=== PATIENT | female | born 1965 | race African-American/Black ===

== ENCOUNTER 2019-10-02 17:49 | Emergency (ER) | payer OTHER ==
[~2019-10-02] VITALS: Ht 167.6 cm; Wt 104.3 kg
[2019-10-02 17:56] VITALS: BP 132/84
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
--- NOTE | 2019-10-02 18:10 | NUR ---
ED Nurse Note: [employer] at bedside with patient.
[2019-10-02] MEDS ORDERED: Omnipaque-300 100ml vial INJ ONE (18:15)
[2019-10-02] MEDS ORDERED: Acetaminophen 500mg (ES) tab ORAL ONE (18:15)
[2019-10-02] MEDS ORDERED: Methocarbamol 750mg tab ORAL ONE (18:15)
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
--- NOTE | 2019-10-02 18:30 | NUR ---
ED Nurse Note: Xray at bedside.
--- NOTE | 2019-10-02 18:42 | NUR ---
ED Nurse Note: Pt taken to CT at this time.
[2019-10-02 18:55] LABS: BASOPHILS % (AUTO) 0.9 % (0.0-2.0); EOSINOPHILS % (AUTO) 0.8 % (0.0-3.0); HEMATOCRIT 38.7 % (37.0-47.0); HEMOGLOBIN 13.1 G/DL (12.0-16.0); LYMPHOCYTES % (AUTO) 19.2 % (20.0-45.0); MEAN CORPUSCULAR VOLUME 88 FL (80-99); MONOCYTES % (AUTO) 5.6 % (1.0-10.0); NEUTROPHILS % (AUTO) 73.5 % (45.0-75.0); PLATELET COUNT 370 K/UL (150-450); RED BLOOD COUNT 4.38 M/UL (4.20-5.40); RED CELL DISTRIBUTION WIDTH 11.8 % (11.6-14.8); WHITE BLOOD COUNT 9.2 K/UL (4.8-10.8)
[2019-10-02 18:58] LABS: ANION GAP 9 mmol/L (5-15); BLOOD UREA NITROGEN 13 mg/dL (7-18); CALCIUM 9.5 MG/DL (8.5-10.1); CARBON DIOXIDE 29 MMOL/L (21-32); CHLORIDE 101 MMOL/L (98-107); CREATININE 1.1 MG/DL (0.55-1.30); POTASSIUM 3.6 MMOL/L (3.5-5.1); SODIUM 139 MMOL/L (136-145)
--- NOTE | 2019-10-02 19:05 | NUR ---
HAND-OFF: Report given to Danial Figueroa and endorsed care.
--- NOTE | 2019-10-02 19:06 | NUR ---
ED Nurse Note: Received report from Alethea PATEL. Pt taken for CT.
--- NOTE | 2019-10-02 19:08 | NUR ---
ED Nurse Note: Urine specimen collected and sent to lab.
[2019-10-02 19:27] VITALS: BP 151/65
--- NOTE | 2019-10-02 19:27 | NUR ---
ED Nurse Note: Pt came back from CT. Not in any distress.
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
[2019-10-02] MEDS ORDERED: LIDODERM700 M1 TOPIC (20:27)
[2019-10-02] MEDS ORDERED: IBUPROFEN600 MG ORAL (20:27)
[2019-10-02 20:42] VITALS: BP 149/82
--- NOTE | 2019-10-02 20:42 | NUR ---
ED Nurse Note: Pt cleared by ERMD for discharge. DC instructions was given and explained to pt and verbalized understanding of teachings. Prescription was sent electronically to the pharmacy of choice. All medical deviecs such as ID band and IV line removed. Pt is AAO x4, ambulatory and left with all personal belongings. Sling was applied. Pt accompanied by daughter.
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
--- NOTE | 2019-10-03 15:21 | Cardiology Report ---
APPROVED REPORT EKG Measurement Heart [id number] Normal sinus rhythm Normal ECG
== END 2019-10-02 20:42 | disposition home or self-care (01) ==
LOC: EDBD 17:49 → EMR 18:05
DX: R07.9 Chest pain, unspecified (principal); M62.838 Other muscle spasm; S40.012A Contusion of left shoulder, initial encounter; S60.222A Contusion of left hand, initial encounter; V43.62XA Car passenger injured in collision with other type car in traffic accident, initial encounter; Y92.410 Unspecified street and highway as the place of occurrence of the external cause; E78.5 Hyperlipidemia, unspecified; I10 Essential (primary) hypertension
CPT/HCPCS: 29125; 36415; 70450; 71260; 72125; 73030; 73130; 74177; 80048; 81025; 85025; 93005; 99284; Q9967